=== PATIENT | male | born 1975 | race African-American/Black ===

== ENCOUNTER 2018-07-14 09:06 | Emergency (ER) | payer MEDICAID ==
[~2018-07-14] VITALS: Ht 182.9 cm; Wt 74.0 kg
[2018-07-14] MEDS ORDERED: AMOX-424 MT (09:42)
[2018-07-14] MEDS ORDERED: tylenol 3 (09:42)
[2018-07-14] MEDS ORDERED: KETOROLAC 60MG/2ML VIAL IM ONE (10:15)
[2018-07-14 11:00] VITALS: BP 110/69
== END 2018-07-14 11:02 | disposition home or self-care (01) ==
LOC: ER 09:06
DX: L84 Corns and callosities (principal); M79.672 Pain in left foot; F12.10 Cannabis abuse, uncomplicated; F17.200 Nicotine dependence, unspecified, uncomplicated
CPT/HCPCS: 73630; 96372; 99283; J1885